=== PATIENT | male | born 1965 | race Hispanic/Latino ===

== ENCOUNTER 2018-04-18 09:32 | Observation (INO) | payer OTHER ==
--- NOTE | 2018-04-18 10:27 | ED PDOC ---
Arrival/HPI - General Chief Complaint: Seizure Time Seen by Provider: 04/18/18 10:00 - History of Present Illness Narrative History of Present Illness (Text): 04/18/18 10:26 A 52 year old male, whose past medical history includes hypertension, presents to the emergency department s/p fall and EMS witnessed seizure from earlier today. Patient reports he hit the back of his head and admitted to drinking yesterday. Patient reports experiencing nausea, sweating, anxiety, and slight shaking of hands. Patient notes he usually drink 3-4 pints of alcohol. Patient has no prior history of alcohol withdrawal seizures but was noted to having a seizure today by bystanders and EMS. Patient denies any fever, chills, shortness of breath, chest pain, diarrhea, vomiting, urinary symptoms, back pain , neck pain, headache, dizziness, or any other complaints. PMD: Dr. Neha Beckett Time/Duration: Other (earlier today) Symptom Onset: Sudden Activities at Onset: Light Context: Home Past Medical History - Provider Review Nursing Documentation Reviewed: Yes - Infectious Disease Hx of Infectious Diseases: None - Cardiac Hx Cardiac Disorders: No - Neurological Hx Neurological Disorder: No - Endocrine/Metabolic Hx Endocrine Disorders: No - Integumentary Hx Dermatological Disorder: No - Musculoskeletal/Rheumatological Hx Musculoskeletal Disorders: No - Gastrointestinal Hx Gastrointestinal Disorders: No - Psychiatric Hx Substance Use: No - Anesthesia Hx Anesthesia: No Family/Social History - Physician Review Nursing Documentation Reviewed: Yes Family/Social History: Unknown Family HX Smoking Status: Unknown If Ever Smoked Hx Alcohol Use: Yes Frequency of alcohol use: Daily Hx Substance Use: No Allergies/Home Meds Allergies/Adverse Reactions: Allergies No Known Allergies Allergy (Verified 04/18/18 15:53) Home Medications: Home Meds Medication Instructions Recorded Confirmed No Known Home Med 04/18/18 04/18/18 Review of Systems - Physician Review All systems were reviewed & negative as marked: Yes - Review of Systems Constitutional: absent: Fevers, Night Sweats Respiratory: absent: SOB Cardiovascular: absent: Chest Pain Gastrointestinal: Nausea. absent: Diarrhea, Vomiting Genitourinary Male: absent: Urinary Output Changes Musculoskeletal: absent: Back Pain, Neck Pain Neurological: absent: Headache, Dizziness Endocrine: Diaphoresis. absent: Polyuria, Polydipsia Psychiatric: Anxiety. absent: Depression, Suicidal Ideation Physical Exam Vital Signs Reviewed: Yes Vital Signs Temp Pulse Resp BP Pulse Ox 04/18/18 14:05 98.9 F 106 H 18 120/81 97 04/18/18 09:32 98.3 F 86 18 160/94 H 98 Temperature: Afebrile Blood Pressure: Hypertensive Pulse: Regular Respiratory Rate: Normal Appearance: Positive for: Well-Appearing, Non-Toxic, Comfortable Pain Distress: None Mental Status: Positive for: Alert and Oriented X 3 - Systems Exam Head: Present: Atraumatic, Normocephalic Pupils: Present: PERRL Extroacular Muscles: Present: EOMI Conjunctiva: Present: Normal Mouth: Present: Moist Mucous Membranes Neck: Present: Normal Range of Motion Respiratory/Chest: Present: Clear to Auscultation, Good Air Exchange. No: Respiratory Distress, Accessory Muscle Use Cardiovascular: Present: Regular Rate and Rhythm, Normal S1, S2. No: Murmurs Abdomen: No: Tenderness, Distention, Peritoneal Signs Back: Present: Normal Inspection Upper Extremity: Present: Normal Inspection. No: Cyanosis, Edema Lower Extremity: Present: Normal Inspection, NORMAL PULSES, Normal ROM, Other (+ both hands visibly tremulous). No: Edema, Cyanosis, Rivas's Sign, Tenderness, Swelling, Erythema, Deformity, Temperature Abnormalties, Neurovascularly Intact , Capillary Refill < 2 s Neurological: Present: GCS=15, CN II-XII Intact, Speech Normal Skin: Present: Warm, Dry, Normal Color, Diaphoretic. No: Rashes, Erythematous, Induration, Hot, Cold, Pale, Laceration, Abscess, Abrasion Psychiatric: Present: Anxious Medical Decision Making ED Course and Treatment: 04/18/18 10:37 Impression: 52 year old male presenting to the emergency department s/p fall and an EMS witnessed seizure. No meningeal signs. No fever, neck stiffness. Given trauma will CT. Plan: -- VBG Shock Panel -- CT of cervical spine without contrast -- Head CT without contrast -- Labs -- CBC with differential -- Ativan -- IV fluids -- Reassess and disposition Progress Notes: 04/18/18 11:32 Dictator: Peewee Upton MD Procedure: CT Head without contrast Impression: No acute findings Dictator: Peewee Upton MD Procedure: CT cervical spine without contrast Impression: Unremarkable CT of the cervical spine. 04/18/18 12:20 CIWA 21: ativan given. Pt to be admitted to withdrawal seizures. Pts primary does not come to [place]. Case discussed with Dr. Figueroa, who is aware and agrees with emergency department management plan to admit patient to his service and advises to place a consult for psychiatry. 04/18/18 19:23 - Lab Interpretations Lab Results: 04/18/18 10:30 04/18/18 10:30 Lab Results 04/18/18 10:30: pO2 45, VBG pH 7.45 H, VBG pCO2 34.0 L, VBG HCO3 23.6, VBG Total CO2 24.6, VBG O2 Sat (Calc) 83.9 H, VBG Base Excess 0.1, VBG Potassium 4.0 , Sodium 137.0, Chloride 102.0, Glucose 122 H, Lactate 3.7 H, FiO2 21.0, Venous Blood Potassium 4.0 04/18/18 10:30: Sodium 138, Chloride 99, Potassium 4.2, Carbon Dioxide 22, Anion Gap 21 H, BUN 9, Creatinine 0.6 L, Est GFR ( Amer) > 60, Est GFR ( Non-Af Amer) > 60, Random Glucose 118 H, Calcium 9.4, Magnesium 1.3 L, Total Bilirubin 0.7, AST 782 H, ALT 556 H, Alkaline Phosphatase 53, Total Creatine Kinase 51, Troponin I < 0.01, Total Protein 7.3, Albumin 4.5, Globulin 2.8, Albumin/Globulin Ratio 1.6 04/18/18 10:30: WBC 5.6, RBC 3.58, Hgb 9.7 L, Hct 29.0 L, MCV 81.0, MCH 27.1, MCHC 33.4, RDW 17.5 H, Plt Count 165, MPV 9.9, Gran % 74.7 H, Lymph % (Auto) 14.4 L, Borden % (Auto) 8.0 H, Eos % (Auto) 2.0, Baso % (Auto) 0.9, Gran # 4.22, Lymph # (Auto) 0.8 L, Borden # (Auto) 0.5, Eos # (Auto) 0.1, Baso # (Auto) 0.05 - RAD Interpretation Radiology Orders: 04/18/18 10:26 CERVICAL SPINE W/O CONTRAST [CT] Stat HEAD W/O CONTRAST [CT] Stat - Medication Orders Current Medication Orders: Amlodipine Besylate (Norvasc) 2.5 mg PO DAILY NATHAN Chlordiazepoxide (Librium) 25 mg PO Q6 PRN; Protocol PRN Reason: Agitation Multivitamins/Vitamin C 10 ml/Thiamine HCl 100 mg/ Folic Acid 1 mg/ Sodium Chloride 1,011.2 mls @ 100 mls/hr IV .Q10H7M ONE Stop: 04/18/18 22:30 Last Admin: 04/18/18 14:59 Dose: 100 mls/hr eMAR Start Stop Document 04/18/18 14:59 SRE (Rec: 04/18/18 14:59 [id number] [id number]) Intravenous Solution Start Date 04/18/18 Start Time 14:59 Levetiracetam (Keppra) 500 mg PO BID NATHAN Discontinued Medications Sodium Chloride (Sodium Chloride 0.9%) 1,000 mls @ 333 mls/hr IV .Q3H1M STA Stop: 04/18/18 13:29 Last Admin: 04/18/18 10:35 Dose: 333 mls/hr eMAR Start Stop Document 04/18/18 10:35 SRE (Rec: 04/18/18 10:36 SRE [id number]) Intravenous Solution Start Date 04/18/18 Start Time 10:36 End Date 04/18/18 End time 11:40 Total Infusion Time 64 Lorazepam (Ativan) 2 mg IVP ONCE ONE PRN Reason: Protocol Stop: 04/18/18 10:27 Last Admin: 04/18/18 10:36 Dose: 2 mg IVP Administration Document 04/18/18 10:36 SRE (Rec: 04/18/18 10:36 SRE [id number]) Charges for Administration # of IVP Administrations 1 Pneumococcal Polyvalent Vaccine (Pneumovax 23 Vaccine) 0.5 ml IM .ONCE ONE Stop: 04/18/18 17:53 - Scribe Statement The provider has reviewed the documentation as recorded by the Mckenna Goldman All medical record entries made by the Scribe were at my direction and personally dictated by me. I have reviewed the chart and agree that the record accurately reflects my personal performance of the history, physical exam, medical decision making, and the department course for this patient. I have also personally directed, reviewed, and agree with the discharge instructions and disposition. Disposition/Present on Arrival - Present on Arrival Any Indicators Present on Arrival: No History of DVT/PE: No History of Uncontrolled Diabetes: No Urinary Catheter: No History of Decub. Ulcer: No History Surgical Site Infection Following: None - Disposition Have Diagnosis and Disposition been Completed?: Yes Diagnosis: Alcohol withdrawal seizure Disposition: HOSPITALIZED Disposition Time: 12:20 Patient Problems: Current Active Problems Problem Status Onset Alcohol withdrawal seizure Acute Condition: GOOD
[2018-04-18] MEDS ORDERED: Sodium Chloride 0.9% 1,000 ML IV STA (10:29)
[2018-04-18 10:44] LABS: BASO # 0.05 K/mm3 (0.0-2.0); BASO % 0.9 % (0.0-3.0); EOS # 0.1 (0.0-0.7); GRAN # 4.22 (1.4-6.5); GRAN % 74.7 % (50.0-68.0); HEMOGLOBIN 9.7 g/dL (14.0-18.0); LYMPH # 0.8 (1.2-3.4); LYMPH % 14.4 % (22.0-35.0); MEAN CORPUSCULAR HEMOGLOBIN 27.1 pg (25.0-35.0); MEAN CORPUSCULAR HGB CONC 33.4 g/dl (31.0-37.0); MEAN PLATELET VOLUME 9.9 fl (7.0-11.0); MONO # 0.5 (0.1-0.6); RBC 3.58 10^6/uL (3.5-6.1); RED CELL DISTRIBUTION WIDTH 17.5 % (11.5-14.5); WHITE BLOOD COUNT 5.6 10^3/ul (4.5-11.0)
[2018-04-18 10:52] LABS: VENOUS BLOOD GAS BASE EXCESS 0.1 mmol/L (0.0-2.0); VENOUS BLOOD GAS PO2 45 mm/Hg (30-55); VENOUS BLOOD PH 7.45 (7.32-7.43)
[2018-04-18 10:59] LABS: ALB/GLOB RATIO 1.6 (1.1-1.8); ALBUMIN 4.5 g/dL (3.0-4.8); ALT/SGPT 556 U/L (7-56); BLOOD UREA NITROGEN 9 mg/dL (7-21); CALCIUM 9.4 mg/dL (8.4-10.5); GFR NON-AFRICAN AMERICAN > 60
[2018-04-18 11:06] LABS: AST/SGOT 782 U/L (17-59)
[2018-04-18 11:11] LABS: TROPONIN I < 0.01 ng/mL
--- NOTE | 2018-04-18 11:25 | CT ---
Date of service: 04/18/2018 PROCEDURE: CT HEAD WITHOUT CONTRAST. HISTORY: fall, seizure COMPARISON: None available. TECHNIQUE: Axial computed tomography images were obtained through the head/brain without intravenous contrast. Radiation dose: Total exam DLP = 856 mGy-cm. This CT exam was performed using one or more of the following dose reduction techniques: Automated exposure control, adjustment of the mA and/or kV according to patient size, and/or use of iterative reconstruction technique. FINDINGS: HEMORRHAGE: No intracranial hemorrhage. BRAIN: No mass effect or edema. No atrophy or chronic microvascular ischemic changes. VENTRICLES: Unremarkable. No hydrocephalus. CALVARIUM: Unremarkable. PARANASAL SINUSES: Unremarkable as visualized. No significant inflammatory changes. MASTOID AIR CELLS: Unremarkable as visualized. No inflammatory changes. OTHER FINDINGS: The report concurs with the preliminary [facility] report IMPRESSION: No acute findings
--- NOTE | 2018-04-18 11:26 | CT ---
Date of service: 04/18/2018 PROCEDURE: CT Cervical Spine without contrast HISTORY: fall, seizure COMPARISON: None available. TECHNIQUE: Axial computed tomography images were obtained of the cervical spine without the use of intravenous contrast. Coronal and sagittal reformatted images were created and reviewed. Radiation dose: Total exam DLP = 529 mGy-cm. This CT exam was performed using one or more of the following dose reduction techniques: Automated exposure control, adjustment of the mA and/or kV according to patient size, and/or use of iterative reconstruction technique. FINDINGS: VERTEBRAE: No fracture. Normal alignment. No destructive bony lesion. DISCS/SPINAL CANAL/NEURAL FORAMINA: No significant central canal or neural foraminal stenosis. Discs heights are grossly preserved. PARASPINAL SOFT TISSUES: Unremarkable. OTHER FINDINGS: The report concurs with the preliminary [facility] report IMPRESSION: Unremarkable CT of the cervical spine.
[2018-04-18] MEDS ORDERED: Multivitamin (MVI) 10 ML, Thiamine 100 MG, Folic Acid 1 MG in Sodium Chloride 0.9% 1,00... IV ONE (12:24)
[2018-04-18 14:22] LABS: VENOUS BLOOD GAS BASE EXCESS 2.4 mmol/L (0.0-2.0); VENOUS BLOOD GAS PO2 101 mm/Hg (30-55); VENOUS BLOOD PH 7.45 (7.32-7.43)
--- NOTE | 2018-04-18 17:20 | MRI ---
Date of service: 04/18/2018 PROCEDURE: MRI BRAIN WITHOUT CONTRAST HISTORY: Patient fell COMPARISON: None available. TECHNIQUE: Multiplanar, multisequence MR images of the brain were obtained without intravenous contrast enhancement. FINDINGS: HEMORRHAGE: None DWI: No evidence of an acute or early subacute infarction. BRAIN PARENCHYMA: No mass effect or edema. No atrophy or chronic microvascular ischemic changes. VENTRICLES: Unremarkable. No hydrocephalus. CRANIUM: Unremarkable. ORBITS: Grossly unremarkable. PARANASAL SINUSES/MASTOIDS: Small amount of dependent fluid in both maxillary antra. Probable small retention cyst/polyp in each maxillary antrum. Chronic ethmoid sinusitis. Possible nasal polyposis. VASCULAR SYSTEM: Skull base flow voids intact. OTHER FINDINGS: None. IMPRESSION: No intracranial hemorrhage. Retention cysts/polyps in both maxillary antra. Chronic ethmoid sinusitis. Nasal polyposis.
[2018-04-18 17:52] VITALS: BMI 27.4
[2018-04-18] MEDS ORDERED: Pneumococcal 23-Valent Vaccine IM ONE (17:52)
--- NOTE | 2018-04-19 04:39 | HP ---
Copied To: Sky Figueroa DO Attending MD: Sky Figueroa DO HISTORY OF PRESENT ILLNESS: I was called down to the emergency room to admit this 52-year-old man who presents to the emergency room after witnessed seizure. Earlier today, hit the back of his head, he was drinking also. He reports expressing nausea, sweating, anxiety, slight shaking of his hands. He usually drinks 3-4 pints of alcohol a day. He has history of alcohol withdrawal seizures in the past. He was called the bystander to call the ambulance to take him to the emergency room. PAST MEDICAL HISTORY: He denies any medical history except that he drinks, does not know any about surgeries. SOCIAL HISTORY: He still drinks, not sure if he smokes. No apparent drugs. ALLERGIES: NO KNOWN DRUG ALLERGIES. HOME MEDICATIONS: No known home medications. REVIEW OF SYSTEMS: No night sweats. No shortness of breath or cough. No chest pain or palpitation. He is nauseous, but no diarrhea or vomiting. No constipation. No problems urinating. No back pain or neck pain. No headache or dizziness. He is sweating a lot. He is anxious. No suicidal thoughts. PHYSICAL EXAMINATION: VITAL SIGNS: He has a 98.3 temp; 86 pulse; 18 respiratory rate; 160/94 blood pressure, I will treat his blood pressure; and 98% O2 sat. GENERAL: He is well appearing, nontoxic, comfortable, alert and oriented x3. HEENT: Head is atraumatic, normocephalic. Extraocular muscles are intact. Pupils equal and reactive to light. Conjunctiva moist. NECK: Supple. HEART: Regular rate. Normal S1, S2. LUNGS: Decreased breath sounds. Poor exchange, but clear to auscultation. ABDOMEN: Soft, nontender. Positive bowel sounds. No guarding, no rebound, no CVA tenderness. EXTREMITIES: Have no edema. Fair range of motion. NEUROLOGIC: GCS 15. Cranial nerves II through XII grossly intact. Normal speech. SKIN: Warm and dry. He has got rosacea of his face drinking. PSYCHIATRIC: He is anxious. LABORATORY DATA: He had multiple tests done. He has a 5.6 white count, 9.7 hemoglobin, 29 hematocrit with 165 platelets. He had a 3.7 lactate when he came in, it came down to 1.5. He has 138 sodium, potassium 4.2, BUN 9, creatinine 0.6, GFR greater than 60, sugar is 118, calcium is 9.4, magnesium 1.3, total bili is 0.7. AST is 782, ALT is 556, alk phos 33. Troponin I is less than 0.01, total protein 7.2, albumin is 4.5. He had multiple other tests. CAT scan of his head and cervical spine were okay. He does have a sinus issue on MRI. MRI of the brain shows retention cyst polyps in both maxillary antra, chronic ethmoidal sinusitis. ASSESSMENT AND PLAN: He will be on a banana bag and Librium [id number], IV fluids. He will get some medication for his blood pressure. We will start him on some Norvasc. I am also going to put him on some Keppra until Neurology sees him because of his seizure. We will check his labs tomorrow and he is admitted for alcohol intoxication with seizures. Sky Figueroa DO MTDD
[2018-04-19 07:38] LABS: HEMOGLOBIN 8.8 g/dL (14.0-18.0); MEAN CELL VOLUME 82.7 fl (80.0-105.0); MEAN CORPUSCULAR HEMOGLOBIN 26.7 pg (25.0-35.0); MEAN CORPUSCULAR HGB CONC 32.4 g/dl (31.0-37.0); MEAN PLATELET VOLUME 10.2 fl (7.0-11.0); RBC 3.29 10^6/uL (3.5-6.1); RED CELL DISTRIBUTION WIDTH 17.9 % (11.5-14.5); WHITE BLOOD COUNT 5.2 10^3/ul (4.5-11.0)
[2018-04-19 08:07] LABS: ALB/GLOB RATIO 1.3 (1.1-1.8); ALBUMIN 3.7 g/dL (3.0-4.8); ALT/SGPT 418 U/L (7-56); AST/SGOT 554 U/L (17-59); BLOOD UREA NITROGEN 9 mg/dL (7-21); CALCIUM 9.2 mg/dL (8.4-10.5); GFR NON-AFRICAN AMERICAN > 60
[2018-04-19] MEDS ORDERED: Folic Acid 1 MG, Thiamine 100 MG, Multivitamin (MVI) 10 ML in Dextrose 5% In Water 1,00... IV SCH (08:15)
[2018-04-19 09:30] VITALS: O2SAT 97
[2018-04-19] MEDS ORDERED: Enoxaparin 30 mg Syringe SC SCH (10:00)
--- NOTE | 2018-04-19 10:18 | CARD ---
APPROVED REPORT Date of service: 04/18/2018 EKG Measurement Heart [id number] <Conclusion> Normal sinus rhythm Normal ECG
--- NOTE | 2018-04-19 10:45 | PN ---
Copied To: Sky Figueroa DO Attending MD: Sky Figueroa DO DATE: 04/19/2018 SUBJECTIVE: He came in yesterday, very much drunk and out of it mentally to the point where I called in Psychiatry to take a look at him and it is very possible he had a seizure when he came in, he is on Ativan in the ER and IV fluids. They changed him to Keppra, Librium, Norvasc and I will re-up his IV fluids, do not know why they fell off. He is sitting up in bed, may be a little bit better than when he came into the Emergency Room, awaiting for Neuro to see him and Psychiatry to see him. Also, Physical Therapy to see him. When I get the okay from those three areas, I will be able to discharge him and hopefully, he could eat. He is more alert this morning and work oriented. PHYSICAL EXAMINATION VITAL SIGNS: He has 98.3 temperature, 78 pulse, 122/83 blood pressure, 19 respiratory rate, 98%O2 sat on room air. HEENT: Head is atraumatic, normocephalic. He looks at me clear today, talking more appropriate. HEART: Regular rate. LUNGS: Decreased breath sounds, but clear. ABDOMEN: Soft. EXTREMITIES: No edema. LABORATORY DATA: He has a 139 sodium, potassium 4, BUN 9, creatinine 0.6, GFR greater than 60, sugar is 88, calcium is 9.2, total bili is 1.1. AST is better at 554, ALT is better 418, alk phos is 48. Troponin I is less than 0.01. Total protein 6.5. His lactate came down to 1.5. His white count is 5.2, hemoglobin 8.8, hematocrit 27.2, platelets 157. I will add some iron because he is a little bit anemic and dilutional; will be on IV fluids, regular medications;, await for him to eat, see how he walks for physical therapy, see what Neurology and Psychiatry has to say. I spoke to Die Machine Operator, will let me know if I can discharge him later today or to keep him on one more day. He is here for alcohol intoxication and seizures. Sky Figueroa DO [facility] # [id number]
[2018-04-19 12:18] VITALS: BP 129/90; PULSE 88; RESP 21; TEMP 98.2
--- NOTE | 2018-04-19 22:53 | CON ---
Copied To: Lucien Ross MD Attending MD: Lucien Ross MD DATE: 04/19/2018 HISTORY OF PRESENT ILLNESS: This is a 52-year-old male who came to the emergency room with witnessed seizure and had lot of drinks, about 3 to 4 pints of alcohol a day, and possibly had a withdrawal kind of a seizure. No tongue bite. No urinary incontinence. PAST MEDICAL HISTORY: As above. SOCIAL HISTORY: Does not smoke. Drinks daily. ALLERGIES: NO KNOWN DRUG ALLERGY. PHYSICAL EXAMINATION: HEENT: Normocephalic, atraumatic. VITAL SIGNS: Blood pressure 160/94. NECK: Supple. NEUROLOGIC: Alert, awake, oriented x3. No aphasia. Cranial nerve II through XII were tested. Pupils reactive. EOM intact. Visual coates full. No facial asymmetry. Tongue midline. Motor examination: Moves all the extremities equally. Tone normal. Deep tendon reflexes 1+. Plantars downgoing. Sensory appears intact. Cerebellar gait, normal. IMPRESSION: Withdrawal seizure, possible. Patient was started on Keppra. PLAN: Continue present management. We will follow up. Lucien Ross MD
--- NOTE | 2018-04-20 08:08 | CON ---
Copied To: Melia Do MD Attending MD: Melia Do MD DATE: 04/19/2018 HISTORY OF PRESENT ILLNESS: The patient is a 52-year-old Syriac male, who does not appear to have any form of psychiatric history except for severe alcohol use disorder, who is admitted on the medical site after he fell and had a witnessed seizure by EMS. Psychiatry was called because of the patient's alcohol withdrawal. I met with the patient at bedside and he is currently alert and oriented to month, year and location; however, he is only superficially oriented to the circumstances as he is not aware of the seizure he had yesterday. The patient is pleasant and cooperative, and has been in good control while he has been treated on the medical floor. He denies having any depression or history of suicide attempts with suicidality. He indicated that generally he is happy except for the fact that he is in the hospital. He admits to drinking 3 pints of vodka almost daily. He has been drinking this much for the last 6 months, but it is noted that he has had alcohol problem when he was 27 years old. 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 Presently, he is coherent and his thought process are consistent, and there is no evidence of perceptual disturbance. He denies having any of these issues at this time. His insight and judgment are improving. Vital signs and labs are reviewed by this provider. Relevant psychiatric medications include Librium 25 p.o. every 6 p.r.n. PSYCHIATRIC HISTORY: The patient denies any psychiatric history including psychiatric medications or hospitalizations. He denies any history of suicide attempts or medication trials . SOCIAL HISTORY: The patient was born and raised in [place]. He is for the last 10 years. He denies any drug use, but does drink 3 pints of vodka almost daily for the last 6 months. He has been an alcoholic for over 25 years. Denies any drug use. 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 IMPRESSION: Severe alcohol use disorder, alcohol withdrawal seizures as well as concurrent delirium. RECOMMENDATIONS: I continue to support medical team's use of Librium 25 mg p.o. every 6, but we taper this medication as necessary on a daily basis as tolerated. Continue with folic acid, thiamine and . At this time, the patient denies having any psychiatric concerns or complaints. Does not appear to have any indication for further psychiatric management in this regard, and then there is no indication that he is unsafe for discharge regarding his psychiatric symptoms. In this regard, he does not meet criteria for psychiatric admission. Psychiatry will sign off at this time. Please re-consult gume. Melia Do MD
== END 2018-04-19 14:24 | disposition home or self-care (01) ==
LOC: ED 09:32 → ERH 12:22 → INTOOBSV 12:22 → ERH 13:25 → 2RSO 15:30
PROVIDERS: ADMIT Family Medicine; ATTEND Family Medicine
DX: R56.9 Unspecified convulsions (principal); F10.239 Alcohol dependence with withdrawal, unspecified; F10.229 Alcohol dependence with intoxication, unspecified; I10 Essential (primary) hypertension; F41.9 Anxiety disorder, unspecified
CPT/HCPCS: 36415; 70450; 70551; 72125; 80053; 82550; 82803; 83735; 84484; 85025; 85027; 93005; 96361; 96374; 97116; 97161; 99285; G0378; G8978; G8979; G8980; J1650; J2060; J3411; J7030; J7070